=== PATIENT | female | born 1940 | race Caucasian/White ===

== ENCOUNTER 2016-09-22 11:50 | Day surgery (SDC) | payer OTHER ==
[2016-09-22] MEDS ORDERED: PROPOFOL 20 ML ONE ×2 (12:15)
[2016-09-22 12:18] VITALS: BMI 31.6
[2016-09-22 13:12] VITALS: TEMP 97.6
[2016-09-22 14:47] VITALS: BP 156/66; PULSE 67
--- NOTE | 2016-09-23 12:42 | PATH ---
Surgical Pathology Report Patient Name: MICHELLE MAS [facility]. Rec. #: [id number] /Age/Gender: 1940 (Age: 76) / F Account: [id number] Location: U-ENDOSCOPY Taken: 09/22/2016 Received: 09/22/2016 Reported: 09/23/2016 Physicians: Pawan Gamboa M.D. Specimen(s) Received A: BX CECAL POLYP B: BX HEPATIC FLEXURE C: BX OLD POLYPECTOMY SITE Clinical History History of colon polyps Cecal polyp, inflammation in hepatic flexure, diverticulosis, old polypectomy site, hemorrhoids Final Diagnosis A. COLON, CECUM, POLYP, BIOPSY: TUBULAR ADENOMA. B. COLON, HEPATIC FLEXURE, BIOPSY: COLONIC MUCOSA WITH FOCAL MILD ACTIVE INFLAMMATION (SEE COMMENT). NO EVIDENCE OF SIGNIFICANT ARCHITECTURAL DISTORTION, GRANULOMA OR DYSPLASIA. Comment: The findings are nonspecific and may represent mild active colitis of various etiologies including infectious and drug/toxin injury. No significant features of chronicity are seen. Clinical and endoscopic correlations are suggested. C. COLON, OLD POLYPECTOMY SITE, BIOPSY: COLONIC MUCOSA WITH MILD HYPERPLASTIC CHANGE. NO DYSPLASIA/ADENOMA IDENTIFIED. Electronically Signed Juanito Ritter M.D. Gross Description A. Received in formalin, labeled "biopsy cecal polyp" is a fowler, irregular portion of soft tissue measuring 0.6 cm in greatest dimension. The specimen is submitted in toto in one cassette. B. Received in formalin, labeled "biopsy hepatic flexure" are 2 fowler, irregular portions of soft tissue measuring 0.2 and 0.4 cm in greatest dimension. The specimens are submitted in toto in one cassette. C. Received in formalin, labeled "biopsy old polypectomy site" are 4 fowler, irregular portions of soft tissue ranging from 0.1-0.4 cm in greatest dimension. The specimens are submitted in toto in one cassette. 09/22/201609/22/2016
== END 2016-09-22 14:00 | disposition home or self-care (01) ==
LOC: JASU-ENDO 11:50
PROVIDERS: ATTEND Internal Medicine Gastroenterology
PROC: 0DBK8ZX Excision of Ascending Colon, Via Natural or Artificial Opening Endoscopic, Diagnostic (ICD-10-PCS; principal; 2016-09-22 12:30)
DX: Z12.11 Encounter for screening for malignant neoplasm of colon (principal); Z86.010 Personal history of colon polyps; D12.0 Benign neoplasm of cecum; K57.30 Diverticulosis of large intestine without perforation or abscess without bleeding; K63.89 Other specified diseases of intestine; K64.4 Residual hemorrhoidal skin tags; K64.8 Other hemorrhoids; K58.9 Irritable bowel syndrome, unspecified
CPT/HCPCS: 88305-TC

== ENCOUNTER 2020-06-18 08:55 | Emergency (ER) | payer OTHER ==
[2020-06-18 09:08] VITALS: TEMP 99; BMI 30.2
[2020-06-18] MEDS ORDERED: DIPHTH,PERTUSS(ACELL),TET 0.5 ML DISP.SYRIN IM ONE ×2 (09:16→09:32)
[2020-06-18 09:54] LABS: BASO % 0.9 % (0-2.0); EOS % 1.1 % (0-4.5); HEMATOCRIT 39.8 % (32.4-45.2); HEMOGLOBIN 12.7 GM/dl (10.7-15.3); MCH 29.5 pg (25.7-33.7); MCHC 31.9 g/dl (32.0-36.0); MEAN CELL VOLUME 92.4 fl (80-96); MEAN PLT VOLUME 8.6 fl (7.5-11.1); MONO % 8.1 % (3.8-10.2); NEUT % 70.9 % (42.8-82.8); PLATELET COUNT 236 K/MM3 (134-434); RDW 13.6 % (11.6-15.6); WHITE BLOOD COUNT 8.3 K/mm3 (4.0-10.8)
[2020-06-18 10:00] LABS: ALBUMIN 3.6 g/dl (3.4-5.0); BILIRUBIN,TOTAL 0.7 mg/dl (0.2-1); CALCIUM 9.1 mg/dl (8.5-10); CREATININE 0.5 mg/dl (0.55-1.3); MAGNESIUM 1.9 mg/dL (1.8-2.4); POTASSIUM 4.3 mmol/L (3.5-5.1); TOT PROT 6.9 g/dl (6.4-8.2)
[2020-06-18 10:10] LABS: EPITHELIAL CELLS FEW /hpf
[2020-06-18 11:59] VITALS: BP 144/56; PULSE 72
== END 2020-06-18 12:40 | disposition home or self-care (01) ==
LOC: FER 08:55
DX: S00.91XA Abrasion of unspecified part of head, initial encounter (principal)
CPT/HCPCS: 36415; 70450-TC; 71045-TC-FY; 72125-TC; 80053; 81003; 81015; 82550; 83735; 84484; 85025; 87086; 93005; 99285-25

== ENCOUNTER 2021-01-01 20:49 | Emergency (ER) | payer OTHER ==
[2021-01-01 21:11] VITALS: BP 170/68; PULSE 65; BMI 31.3
== END 2021-01-01 22:14 | disposition home or self-care (01) ==
LOC: FER 20:49
DX: M79.601 Pain in right arm (principal); W01.0XXA Fall on same level from slipping, tripping and stumbling without subsequent striking against object, initial encounter
CPT/HCPCS: 70450-TC; 73060-TC-RT-FY; 99284-25